=== PATIENT | male | born 1935 | race Caucasian/White ===

== ENCOUNTER → 2017-12-14 | Outpatient (CLI) | payer MEDICARE ==
[~2017-12-14] MED LIST: ASPIRIN325 MG PO; ATORVASTATIN CA20 MG PO; DIOVAN40 MG PO; FLOMAX0.4 MG PO; FLONASE; LASIX40 MG PO; METHIMAZOLE10 MG PO; METOPROLOL TART50 MG PO; NORCO 10-325 T1 EACH PO; PLAVIX75 MG PO
--- NOTE | 2017-12-15 15:23 | Diagnostic Imaging Report ---
History: Low back pain, bilateral hip pain Comparison studies: None Technique: Sagittal, coronal and axial T2 , sagittal T1 and IR, axial spin density oblique. Intravenous contrast: None Findings: Number of lumbar vertebral bodies:5 Alignment: Minimal retrolistheses of L3 over L4.Levoscoliosis centered at L3. Soft tissues: No T2 hyperintense inflammatory changes. 1 cm cyst at the left kidney interpolar region Paraspinal muscles: No signal abnormalities. No atrophy. Lower thoracic cord:Normal in signal and morphology. The tip of the conus is at L1. Cauda equina: No masses. No arachnoiditis. Vertebrae: Normal in height and signal intensity. No compression fractures, infection or neoplasm. Degenerative changes: Disc degeneration with loss of T2 signal and decreased intervertebral space at the lower thoracic spine. L1-L2: Disc degeneration with loss of T2 signal and decreased intervertebral space. Asymmetric left disc bulge without significant canal stenosis or foraminal narrowing. L2-L3: Disc degeneration with obliterated intervertebral space and endplate irregularities. Diffuse disc bulge and moderate facet hypertrophy results in mild canal stenosis and mild bilateral foraminal narrowing. L3-L4: Disc degeneration with obliterated intervertebral space. Asymmetric left disc bulge, moderate facet hypertrophy and ligamentum flavum thickening results in mild canal stenosis and mild bilateral foraminal narrowing. L4-L5: Disc degeneration with loss of T2 signal. Diffuse disc bulge and moderate facet hypertrophy without significant canal stenosis and mild right foraminal narrowing. L5-S1: Disc degeneration with loss of T2 signal. Diffuse disc bulge and severe facet hypertrophy without significant canal stenosis and mild right foraminal narrowing. Trace of fluid at the bilateral facet joints. Additional findings: None IMPRESSION: Dextroscoliosis centered at L3. Mild multilevel degenerative foraminal narrowing at L2-L3 and L3-4 bilaterally; L4-L5 and L5-S1 on the right. Mild degenerative canal stenosis at L2-L3 and L3-L4. Moderate to severe facet hypertrophy at the medial lower spine with synovitis changes at L5-S1. Moderate diffuse disc degeneration more significant at L2-L3 and L3-L4 without Modic type I changes. Signed by: DR Ger Cosme M.D. on 12/15/2017 3:19 PM
== END ==
LOC: MRI 09:59
PROVIDERS: ATTEND Pain Medicine Pain Medicine
DX: M54.16 Radiculopathy, lumbar region (principal)
CPT/HCPCS: 72148

== ENCOUNTER → 2024-08-08 | Outpatient (REF) | payer MEDICARE | LOC: MAMMO 09:37 | PROVIDERS: ATTEND Family Medicine | DX: N62 Hypertrophy of breast (principal) | CPT/HCPCS: 77066 ==